=== PATIENT | male | born 1960 | race Caucasian/White ===

== ENCOUNTER → 2023-12-01 06:18 | Day surgery (SDC) | payer BC, SELFPAY | LOC: GI 06:18 | PROVIDERS: ATTENDING PHYSICIAN Internal Medicine Gastroenterology | DX: Z12.11 Encounter for screening for malignant neoplasm of colon (principal); K64.8 Other hemorrhoids; D12.4 Benign neoplasm of descending colon; K63.5 Polyp of colon | CPT/HCPCS: 45380; 88305 ==

== ENCOUNTER → 2024-04-14 15:51 | Outpatient (REF) | payer BC, SELFPAY | LOC: RCS 15:51 | PROVIDERS: ATTENDING PHYSICIAN Internal Medicine Cardiovascular Disease; FAMILY PHYSICIAN Physician Assistant | DX: I49.3 Ventricular premature depolarization (principal) | CPT/HCPCS: 93306 ==